=== PATIENT | male | born 1965 | race Caucasian/White ===

== ENCOUNTER → 2016-07-11 | Outpatient (CLI) | payer OTHER ==
[~2016-07-11] MED LIST: ASPI81TA28 PO; OMEG10007 PO
[2016-07-11 13:42] LABS: CHOLESTEROL/HDL RATIO 5.9
== END | disposition home or self-care (01) ==
LOC: C.LABMFLN 07:15
PROVIDERS: ATTEND Family Medicine
DX: E78.00 Pure hypercholesterolemia, unspecified (principal)

== ENCOUNTER → 2016-08-02 | Outpatient (CLI) | payer OTHER ==
--- NOTE | 2016-08-02 16:45 | EXERCISE STRESS ECHO ---
*NOTICE TO RECEIVING [employer] This information is strictly Confidential and protected under [place] law. [place] law prohibits you from making any further disclosure of this information unless further disclosure is expressly permitted by the written consent of the person to whom it pertains or is authorized by law. A general authorization for the release of medical or other information is not sufficient for this purpose. Hospital accepts no responsibility if the information is made available to any other person, INCLUDING THE PATIENT. Interpretation Summary * Name: RAUL OGDEN Study Date: 08/02/2016 10:32 AM BP: 132/86 mmHg * Patient Location: [facility] HR: 71 * : 1965 (M/d/yyyy) Gender: Male Height: 67 in * Age: 51 yrs Ethnicity: [place] Weight: 175 lb * Ordering Physician: Alexis Page * Referring Physician: Alexis Page * Performed By: [facility] * * Reason For Study: chest pain * BSA: 1.9 m2 * -- Conclusions -- * Diastolic dysfunction, Grade II (pseudonormalization pattern). * Normal exercise echocardiogra without inducible ischemia * Left ventricular systolic function is normal. * Normal EKG and echocardiogram without inducible ischemia * NO symptoms reported * Normal HR and BP response with good heart rate recovery * Long score: 10 (low risk) Procedure Details * ECHOEX, CPT #[id number] * ECHO COLOR FLOW, CPT #[id number] * ECHO DOPPLER, CPT #[id number] Left Ventricular Findings with Stress * Normal exercise echocardiogra without inducible ischemia Left Ventricle * The left ventricle is grossly normal size. * Ejection Fraction = 60-65%. * Left ventricular systolic function is normal. Right Ventricle * The right ventricle is normal in size and function. Atria * The left atrial size is normal. Mitral Valve * The mitral valve is grossly normal. * There is no mitral regurgitation noted. Tricuspid Valve * The tricuspid valve is not well visualized, but is grossly normal. Aortic Valve * The aortic valve is trileaflet. * No hemodynamically significant valvular aortic stenosis. * There is no significant aortic regurgitation. Pericardium * There is no pericardial effusion. Stress Parameters * Normal baseline electrocardiogram. * Stress ECG: No ST changes. No arrhythmias. * Rest heart rate was '71' BPM. * Rest blood pressure was '132/86' * Maximum heart rate achieved was 166 bpm. * Maximum heart rate was 99 % of maximum age-predicted heart rate. * Maximum blood pressure was '188/89' * Total exercise time was '10:15' * Maximum exercise MET level achieved was '12.1' METS * Maximum treadmill speed was '4.2' miles per hour. * Maximum treadmill elevation was '16'% grade. * Exercise was terminated due to 'fatigue after achieving target heart rate' * Normal blood pressure response to exercise. Left Ventricular Diastolic Function * Diastolic dysfunction, Grade II (pseudonormalization pattern). MMode 2D Measurements and Calculations IVSd 1.0 cm IVSs 1.2 cm LVIDd 4.1 cm LVIDs 2.7 cm LVPWd 1.0 cm LVPWs 1.2 cm IVS/LVPW 10 FS 34.3 % EDV(Teich) 73.7 ml ESV(Teich) 26.7 ml EF(Teich) 63.8 % EDV(cubed) 68.2 ml ESV(cubed) 19.4 ml EF(cubed) 71.6 % % IVS thick 22.0 % % LVPW thick 16.1 % LV mass(C)d 135.7 grams LV mass(C)dI 71.0 grams/m\S\2 LV mass(C)s 96.3 grams LV mass(C)sI 50.4 grams/m\S\2 CO(Teich) 3.1 l/min CI(Teich) 1.6 l/min/m\S\2 SV(Teich) 47.0 ml SI(Teich) 24.6 ml/m\S\2 CO(cubed) 3.2 l/min CI(cubed) 1.7 l/min/m\S\2 SV(cubed) 48.9 ml SI(cubed) 25.6 ml/m\S\2 Ao root diam 3.3 cm Ao root area 8.4 cm\S\2 ACS 1.9 cm LA dimension 2.5 cm LA/Ao 0.78 LVAd ap4 30.3 cm\S\2 LVLd ap4 9.1 cm EDV(MOD-sp4) 81.0 ml LVAs ap4 17.2 cm\S\2 LVLs ap4 7.8 cm ESV(MOD-sp4) 31.0 ml EF(MOD-sp4) 61.7 % LVAd ap2 30.9 cm\S\2 LVLd ap2 9.2 cm EDV(MOD-sp2) 88.0 ml LVAs ap2 17.2 cm\S\2 LVLs ap2 7.6 cm ESV(MOD-sp2) 34.0 ml EF(MOD-sp2) 61.4 % CO(MOD-sp4) 3.3 l/min CI(MOD-sp4) 1.7 l/min/m\S\2 SV(MOD-sp4) 50.0 ml SI(MOD-sp4) 26.2 ml/m\S\2 CO(MOD-sp2) 3.5 l/min CI(MOD-sp2) 1.8 l/min/m\S\2 SV(MOD-sp2) 54.0 ml SI(MOD-sp2) 28.3 ml/m\S\2 Doppler Measurements and Calculations MV E max jorge l 95.3 cm/sec MV A max jorge l 72.3 cm/sec MV E/A 1.3 MV P1/2t max jorge l 77.2 cm/sec MV P1/2t 102.4 msec MVA(P1/2t) 2.1 cm\S\2 MV dec slope 220.8 cm/sec\S\2 MV dec time 0.20 sec Ao V2 max 116.4 cm/sec Ao max PG 5.4 mmHg Ao max PG (full) 1.4 mmHg LV V1 max PG 4.1 mmHg LV V1 max 100.7 cm/sec PA V2 max 88.7 cm/sec PA max PG 3.1 mmHg
== END | disposition home or self-care (01) ==
LOC: C.CPL 09:57
PROVIDERS: ATTEND Family Medicine
DX: R07.89 Other chest pain (principal)

== ENCOUNTER → 2016-12-25 | Outpatient (CLI) | payer OTHER ==
[2016-12-25 18:02] LABS: CHOLESTEROL/HDL RATIO 2.6
== END | disposition home or self-care (01) ==
LOC: C.LABMFLN 11:58
PROVIDERS: ATTEND Family Medicine
DX: E78.00 Pure hypercholesterolemia, unspecified (principal)

== ENCOUNTER → 2017-06-30 | Outpatient (CLI) | payer OTHER | END | disposition home or self-care (01) | LOC: C.LABMFLN 15:06 | PROVIDERS: ATTEND Family Medicine | DX: E78.00 Pure hypercholesterolemia, unspecified (principal) ==